=== PATIENT | female | born 1950 | race Caucasian/White ===

== ENCOUNTER → 2022-09-02 | Outpatient (REF) | payer OTHER, SELFPAY ==
[2022-09-02 08:27] LABS: Hemoglobin A1c 5.4 % (3.8-5.6)
[2022-09-02 08:37] LABS: Vitamin D,25 Hydroxy 48.4 ng/mL
[2022-09-02 08:38] LABS: Cholesterol 146 mg/dL (200); High Density Lipoprotein 43 mg/dL; Thyroid Stim Hormone (TSH) 1.45 uIU/mL (0.358-3.74); Triglycerides 157 mg/dL; Very Low Density Lipoprotein 31 mg/dL (5-40)
== END ==
LOC: OLS.ACW100 05:00
PROVIDERS: Visit Provider Family Medicine
DX: L89.154 Pressure ulcer of sacral region, stage 4 (principal); M86.9 Osteomyelitis, unspecified; E86.0 Dehydration; E11.10 Type 2 diabetes mellitus with ketoacidosis without coma; E55.9 Vitamin D deficiency, unspecified; I10 Essential (primary) hypertension; E66.01 Morbid (severe) obesity due to excess calories
CPT/HCPCS: 36415; 80061; 82306; 83036; 84443